=== PATIENT | female | born 1985 | race African-American/Black ===

== ENCOUNTER → 2019-04-25 | Outpatient (CLI) | payer BC | LOC: ULTRA 10:32 | DX: D25.9 Leiomyoma of uterus, unspecified (principal); R19.09 Other intra-abdominal and pelvic swelling, mass and lump ==

== ENCOUNTER → 2019-05-26 | Outpatient (CLI) | payer BC | LOC: CAT 08:04 | DX: N13.30 Unspecified hydronephrosis (principal); R19.09 Other intra-abdominal and pelvic swelling, mass and lump; Z90.721 Acquired absence of ovaries, unilateral ==